=== PATIENT | female | born 1960 | race Caucasian/White ===

== ENCOUNTER 2020-07-21 07:30 | Inpatient (IN) | payer OTHER ==
[~2020-07-21] VITALS: Ht 160 cm; Wt 59.5 kg
[2020-07-21] MEDS ORDERED: FEXO1TAB29 PO (16:18)
[2020-07-25] MEDS ORDERED: CEFAZOLIN PMX 1GM/50ML 50 ML IV ONE (06:30)
[2020-07-25] MEDS ORDERED: LACTATED RINGERS 1,000 ML IV SCH (06:34)
[2020-07-25] MEDS ORDERED: BUPIVACAINE/EPI 0.5% 1:200K ONE (06:50)
[2020-07-25] MEDS ORDERED: BACITRACIN 50,000 UNIT ONE (06:50)
[2020-07-25] MEDS ORDERED: ONDANSETRON 2MG/ML, 2ML IVPush PRN ×2 (07:00→08:30)
[2020-07-25] MEDS ORDERED: PHARMACY MAY ADJ FOR RENAL FX MC PRN (07:00)
[2020-07-25] MEDS ORDERED: CHLORHEXIDINE 15 ML UDC MM ONE (07:00)
[2020-07-25] MEDS ORDERED: LABETALOL 5MG/ML, 20ML IVPush PRN (07:00)
[2020-07-25] MEDS ORDERED: OXYcodone IR 5MG TABLET PO PRN (07:00)
[2020-07-25] MEDS ORDERED: DIPHENHYDRAMINE 50 MG CAPSULE PO PRN (07:00)
[2020-07-25] MEDS ORDERED: SENNA/DOCUSATE TABLET PO PRN (07:00)
[2020-07-25] MEDS ORDERED: BISACODYL 10 MG SUPP PR PRN (07:00)
[2020-07-25] MEDS ORDERED: ACETAMINOPHEN 650 MG SUPP PR PRN (07:00)
[2020-07-25] MEDS ORDERED: MAGNESIUM HYDROXIDE 8%, 30ML UDC PO PRN (07:00)
[2020-07-25] MEDS ORDERED: MIDAZOLAM 1 MG/ML, 2ML ONE (07:03)
[2020-07-25] MEDS ORDERED: FENTANYL PF 250 MCG/5ML ONE (07:03)
[2020-07-25] MEDS ORDERED: SCOPOLAMINE 1MG PATCH TD ONE (07:19)
[2020-07-25] MEDS ORDERED: ONDANSETRON 2MG/ML, 2ML ONE (07:27)
[2020-07-25] MEDS ORDERED: KETOROLAC 30 MG/1 ML ONE (07:27)
[2020-07-25] MEDS ORDERED: GLYCOPYRROLATE 0.2MG/1ML, 5ML ONE (07:27)
[2020-07-25] MEDS ORDERED: PROPOFOL 10 MG/ML, 20ML ONE (07:27)
[2020-07-25] MEDS ORDERED: ROCURONIUM 10 MG/ML,10ML ONE (07:27)
[2020-07-25] MEDS ORDERED: DEXAMETHASONE 4 MG/ML, 1ML ONE (07:27)
[2020-07-25] MEDS ORDERED: SUCCINYLCHOLINE 20 MG/ML, 10ML ONE (07:27)
[2020-07-25] MEDS ORDERED: SCOPOLAMINE 1MG PATCH TD SCH (07:30)
[2020-07-25] MEDS ORDERED: HEPARIN 1,000 UNITS/ML, 30ML IVPB ONE (08:04)
[2020-07-25] MEDS ORDERED: hydrALAzine 20 MG/ML, 1ML IV PRN (08:30)
[2020-07-25] MEDS ORDERED: METOCLOPRAMIDE 5 MG/ML, 2ML IV PRN (08:30)
[2020-07-25] MEDS ORDERED: DIAZEPAM 5 MG/ML, 2ML IV PRN ×2 (08:30)
[2020-07-25] MEDS ORDERED: OXYcodone 5 MG/5 ML ORAL.SOL UDC PO PRN (08:30)
[2020-07-25] MEDS ORDERED: MEPERIDINE/PF 25MG/0.5ML IVPush PRN (08:30)
[2020-07-25] MEDS ORDERED: HYDROmorphone 1 MG/ML, 1ML INJ IV PRN (08:30)
[2020-07-25] MEDS ORDERED: KETOROLAC 30 MG/1 ML IV PRN (08:30)
[2020-07-25] MEDS ORDERED: LABETALOL 5MG/ML, 20ML IV PRN (08:30)
[2020-07-25] MEDS ORDERED: PROMETHAZINE 25 MG/ML, 1ML IV PRN (08:30)
[2020-07-25] MEDS ORDERED: ALBUTEROL SULFATE 2.5 MG/3 ML NPPB PRN (08:30)
[2020-07-25] MEDS ORDERED: FENTANYL PF 100 MCG/2ML ONE (09:37)
[2020-07-25] MEDS ORDERED: OXYcodone 5 MG/5 ML ORAL.SOL UDC ONE (09:38)
[2020-07-25] MEDS: FENTANYL PF 100 MCG/2ML IV PRN ×3 (09:48→10:00)
[2020-07-25] MEDS ORDERED: METHOCARBAMOL 750 MG TABLET ONE (12:57)
[2020-07-25] MEDS: ACETAMINOPHEN 325 MG TABLET PO PRN ×2 (14:14→20:00)
[2020-07-25] MEDS: METHOCARBAMOL 750 MG TABLET PO PRN ×2 (14:14→22:02)
[2020-07-25] MEDS: NS + 20MEQ KCL 1,000 ML IV SCH ×2 (14:48→19:47)
[2020-07-25 14:54] VITALS: BP 92/52
[2020-07-25] MEDS ORDERED: morphine SULFATE/PF 0.5 MG/ML, 10ML IV PRN (16:30)
[2020-07-25 20:03] VITALS: BP 96/59
[2020-07-26] MEDS: ACETAMINOPHEN 325 MG TABLET PO PRN ×2 (00:22→05:55)
[2020-07-26 00:30] VITALS: BP 85/42
[2020-07-26 03:46] VITALS: BP 92/53
[2020-07-26 04:04] LABS: BASOPHILS # (AUTO) 0.04 x10^3/uL (0-0.1); BASOPHILS % (AUTO) 0 % (0-1); EOSINOPHILS # (AUTO) 0.08 x10^3/uL (0-0.4); EOSINOPHILS % (AUTO) 1 % (1-7); LYMPHOCYTES % (AUTO) 21 % (22-44); MD NO; MEAN CORPUSCULAR HEMOGLOBIN 32.4 pg (27.0-34.8); MEAN CORPUSCULAR VOLUME 98.2 fL (80-100); MEAN PLATELET VOLUME 9.8 fL (7.4-10.4); MONOCYTES % (AUTO) 6 % (2-9); NEUTROPHILS # (AUTO) 8.02 x10^3/uL (1.8-6.8); NEUTROPHILS % (AUTO) 72 % (42-75); PLATELET COUNT 241 x10^3/uL (130-400); RED BLOOD COUNT 3.54 x10^6/uL (3.82-5.3); RED CELL DISTRIBUTION WIDTH 12.3 % (9.6-15.2)
[2020-07-26 04:16] LABS: ANION GAP 4 mmol/L (5-15); CALCIUM 8.8 mg/dL (8.5-10.1); CHLORIDE 104 mmol/L (98-107)
[2020-07-26 04:18] LABS: CREATININE 0.65 mg/dL (0.55-1.02)
[2020-07-26 07:48] VITALS: BP 100/48
[2020-07-26] MEDS ORDERED: HYDR-3240 PO (09:35)
[2020-07-26] MEDS ORDERED: METH750T87 PO (09:36)
[2020-07-26] MEDS ORDERED: CEPH-368 PO (09:36)
[2020-07-26] MEDS ORDERED: ONDA4TAB7 PO (09:37)
[2020-07-26] MEDS: NS + 20MEQ KCL 1,000 ML IV SCH (09:40)
[2020-07-26 12:25] VITALS: BP 108/69
[2020-07-27] MEDS ORDERED: METHOCARBAMOL 750 MG TABLET PO SCH (15:00)
== END 2020-07-26 12:30 | disposition home or self-care (01) | DRG 460 ==
LOC: ORIP 07-25 05:32 → 4NE 07-25 10:46
PROVIDERS: ADMIT Orthopaedic Surgery; ATTEND Orthopaedic Surgery
PROC: 0SB40ZZ Excision of Lumbosacral Disc, Open Approach (ICD-10-PCS; 2020-07-25)
PROC: 01NB0ZZ Release Lumbar Nerve, Open Approach (ICD-10-PCS; 2020-07-25)
PROC: 0SG30A0 Fusion of Lumbosacral Joint with Interbody Fusion Device, Anterior Approach, Anterior Column, Open Approach (ICD-10-PCS; principal; 2020-07-25 07:30)
DX: M43.17 Spondylolisthesis, lumbosacral region (principal); Z72.89 Other problems related to lifestyle; M48.07 Spinal stenosis, lumbosacral region
CPT/HCPCS: 36415; 72100; 74018; 80048; 82040; 85025; C1713; G0378; J0690; J1100; J1644; J1885; J2250; J2270; J2405; J2704; J3010; J3480; C1762; C1889; J0330; J7120

== ENCOUNTER → 2020-07-21 | Outpatient (CLI) | payer OTHER ==
[~2020-07-21] MED LIST: FEXO1TAB29 PO
[2020-07-21 16:40] LABS: MICROSCOPIC NOT IND
[2020-07-21 16:41] LABS: INTERNATIONAL NORMALIZED RATIO 1.04 (0.93-1.1); PROTHROMBIN TIME 10.7 Seconds (9.6-11.5)
[2020-07-21 16:44] LABS: BASOPHILS # (AUTO) 0.05 x10^3/uL (0-0.1); BASOPHILS % (AUTO) 1 % (0-1); EOSINOPHILS % (AUTO) 1 % (1-7); LYMPHOCYTES # (AUTO) 2.05 x10^3/uL (1-3.4); LYMPHOCYTES % (AUTO) 29 % (22-44); MD NO; MEAN CORPUSCULAR HEMOGLOBIN 32.4 pg (27.0-34.8); MEAN CORPUSCULAR HGB CONC 33.1 g/dL (32.4-35.8); MEAN CORPUSCULAR VOLUME 97.8 fL (80-100); MEAN PLATELET VOLUME 10.1 fL (7.4-10.4); MONOCYTES # (AUTO) 0.57 x10^3/uL (0.2-0.8); MONOCYTES % (AUTO) 8 % (2-9); NEUTROPHILS # (AUTO) 4.23 x10^3/uL (1.8-6.8); NEUTROPHILS % (AUTO) 60 % (42-75); PLATELET COUNT 278 x10^3/uL (130-400); RED BLOOD COUNT 4.19 x10^6/uL (3.82-5.3)
[2020-07-21 16:57] LABS: CHLORIDE 104 mmol/L (98-107)
[2020-07-21 17:12] LABS: ALANINE AMINOTRANSFERASE 26 U/L (12-78); ALBUMIN 4.1 g/dL (3.4-5.0); ALKALINE PHOSPHATASE 69 U/L (45-117); ANION GAP 5 mmol/L (5-15); BILIRUBIN,TOTAL 0.2 mg/dL (0.2-1.0); CALCIUM 9.4 mg/dL (8.5-10.1); CREATININE 1.33 mg/dL (0.55-1.02); TOTAL PROTEIN 7.6 g/dL (6.4-8.2)
== END | disposition home or self-care (01) ==
LOC: STAR 15:32
PROVIDERS: ATTEND Orthopaedic Surgery
DX: Z01.812 Encounter for preprocedural laboratory examination (principal); Z20.828 Contact with and (suspected) exposure to other viral communicable diseases; M43.07 Spondylolysis, lumbosacral region
CPT/HCPCS: 36415; 71046; 80053; 81003; 82306; 85025; 85610; 85730; 87635; 93005